=== PATIENT | male | born 1980 | race Caucasian/White ===

== ENCOUNTER 2018-08-31 10:46 | Emergency (ER) | payer MEDICARE, MEDICAID ==
[2018-08-31 12:40] VITALS: BP 140/97
--- NOTE | 2018-09-01 06:32 | ED ---
Back Pain - HPI Summary HPI Summary: Patient is a 37-year-old male who presents emergency department for right low back pain that has been ongoing for several years. Patient states he is having issues with his back for many years and pain was exacerbated this past week. He is unaware of any recent injuries. He is currently unemployed. Pain starts to right lower back and radiates to right leg. Occasional tingling into right leg that resolves with position changes. Patient denies bowel or bladder incontinence or retention. Patient denies fever, abdominal pain, vomiting, diarrhea, urinary symptoms. Movement makes symptoms worse. Standing makes symptoms better. Symptoms are mild in severity. - History of Current Complaint Chief Complaint: EDBackInjuryPain Stated Complaint: BACK PAIN PER PT Time Seen by Provider: 08/31/18 11:18 Hx Obtained From: Patient Pain Intensity: 7 Pain Scale Used: 0-10 Numeric - Allergies/Home Medications Allergies/Adverse Reactions: Allergies Allergy/AdvReac Type Severity Reaction Status Date / Time amoxicillin Allergy Unknown Verified 08/31/18 10:52 Reaction Details Penicillins Allergy Unknown Verified 08/31/18 10:52 Reaction Details PMH/Surg Hx/FS Hx/Imm Hx Previously Healthy: Yes Endocrine/Hematology History: Denies: Hx Anticoagulant Therapy, Hx Diabetes, Hx Thyroid Disease Cardiovascular History: Denies: Hx Congestive Heart Failure, Hx Deep Vein Thrombosis, Hx Hypertension , Hx Myocardial Infarction, Hx Pacemaker/ICD Respiratory History: Denies: Hx Asthma, Hx Chronic Obstructive Pulmonary Disease (COPD), Hx Lung Cancer, Hx Pneumonia, Hx Pulmonary Embolism GI History: Denies: Hx Gall Bladder Disease, Hx Gastrointestinal Bleed, Hx Ulcer, Hx Urosepsis History: Denies: Hx Kidney Stones, Hx Renal Disease Neurological History: Denies: Hx Dementia, Hx Migraine, Hx Seizures, Hx Transient Ischemic Attacks (TIA) Psychiatric History: Reports: Hx Anxiety - He is not on medications for these., Hx Depression, Hx Bipolar Disorder Denies: Hx Schizophrenia Infectious Disease History: No Infectious Disease History: Denies: Traveled Outside the [place] in Last 30 Days - Family History Known Family History: Positive: Cardiac Disease, Hypertension, Diabetes - Social History Occupation: Unemployed Lives: With Family Alcohol Use: None Substance Use Type: Reports: Marijuana Smoking Status (MU): Former Smoker Type: Cigarettes Length of Time of Smoking/Using Tobacco: 15 years Have You Smoked in the Last Year: No Review of Systems Constitutional: Negative Negative: Fever, Chills Gastrointestinal: Negative Negative: Abdominal Pain, Vomiting, Diarrhea Genitourinary: Negative Negative: dysuria, discharge, flank pain Positive: Other - Right low back pain Skin: Negative Positive: Paresthesia All Other Systems Reviewed And Are Negative: Yes Physical Exam Triage Information Reviewed: Yes Vital Signs On Initial Exam: Initial Vitals Temp Pulse Resp BP Pulse Ox 97.7 F 98 17 144/91 98 08/31/18 10:48 08/31/18 10:48 08/31/18 10:48 08/31/18 10:48 08/31/18 10:48 Vital Signs Reviewed: Yes Appearance: Positive: Well-Appearing - Pt. sitting on bed in NAD. Skin: Positive: Warm, Dry Head/Face: Positive: Normal Head/Face Inspection Eyes: Positive: Normal, EOMI, ZAK Neck: Positive: Supple Respiratory/Lung Sounds: Positive: Clear to Auscultation, Breath Sounds Present Cardiovascular: Positive: Normal, RRR Musculoskeletal: Positive: Normal, Strength/ROM Intact, Other - 5 out of 5 strength in bilateral lower extremities flexion and dorsiflexion. Positive straight leg test on right. No midline lumbar tenderness. Pain over right SI joint. No CVA tenderness. Neurological: Positive: Normal, CN Intact II-III Diagnostics - Vital Signs Vital Signs Temp Pulse Resp BP Pulse Ox 08/31/18 12:38 97.5 F 82 16 140/97 97 08/31/18 10:48 97.7 F 98 17 144/91 98 - Laboratory Lab Statement: Any lab studies that have been ordered have been reviewed, and results considered in the medical decision making process. Back Pain Course/Dx - Course Course Of Treatment: Patient presenting for right low back pain specifically over SI joint. Pain is been ongoing for numerous years. Suspect sacroiliitis. He has no neurological deficits or evidence of cauda equina syndrome. Prescribed naproxen and Flexeril. Advised follow-up with PCP and possible referral for physical therapy. Patient understands and agrees with plan. - Diagnoses Differential Diagnosis/HQI/PQRI: Positive: Arthritis, Herniated Disc, Strain, Sprain Provider Diagnoses: Sacroiliitis Discharge - Sign-Out/Discharge Documenting (check all that apply): Patient Departure Patient Received Moderate/Deep Sedation with Procedure: No - Discharge Plan Condition: Good Disposition: HOME Prescriptions: Cyclobenzaprine TAB* [Flexeril 10 MG TAB*] 10 mg PO TID PRN #12 tab PRN Reason: Pain Naproxen [Naproxen 500 mg tab] 500 mg PO BID #20 tablet Patient Education Materials: Sacroiliitis (ED) Referrals: Gordy Snyder NP [Primary Care Provider] - Additional Instructions: Schedule a follow up appointment with your PCP You may benefit from physical therapy Medication as directed Apply ice or heat to low back Avoid heavy lifting Can continue stretching and yoga Return to ER for fever, increased pain, leg numbness/weakness, bowel or bladder incontinence or retention - Billing Disposition and Condition Condition: GOOD Disposition: Home
== END 2018-08-31 12:38 | disposition home or self-care (01) ==
LOC: ED 10:46
DX: M46.1 Sacroiliitis, not elsewhere classified (principal); Z88.0 Allergy status to penicillin; Z88.3 Allergy status to other anti-infective agents; Z87.891 Personal history of nicotine dependence
CPT/HCPCS: 99281